=== PATIENT | female | born 1990 | race Hispanic/Latino ===

== ENCOUNTER 2017-08-28 18:37 | Emergency (ER) | payer BC, OTHER ==
[2017-08-28 19:35] LABS: #Basophils 0.1 thou/uL (0.0-0.2); #Eosinphils 0.6 thou/uL (0.0-0.7); #Lymphocytes 2.1 thou/uL (1.20-3.40); #Monocytes 0.6 thou/uL (0.11-0.59); #Neutrophils 5.1 thou/uL (1.40-6.50); %Basophils 1.1 % (0.0-1.0); %Lymphocytes 24.5 % (21.0-51.0); %Monocytes 7.1 % (0.0-10.0); %Neutrophils 60.3 % (42.0-75.0); Hemoglobin 12.8 g/dL (12.0-16.0); Mean Corpuscular HGB CONC 33.6 g/dL (32.0-36.0); Mean Corpuscular Hemoglobin 30.4 pg (27.0-31.0); Mean Corpuscular Volume 90.6 fl (81.0-99.0); Mean Platelet Volume 8.1 fL (7.4-10.4); Platelet Count 197 thou/uL (130-400); RBC Distribution Width 11.5 % (11.5-14.5); White Blood Cell (WBC) Count 8.4 thou/uL (4.8-10.8)
[2017-08-28 19:41] LABS: Bilirubin Negative (Negative); Blood, Urine Negative (Negative); Clarity Clear (Clear); Glucose, Urine (Dipstick) Negative (Negative); Leukocyte Negative (Negative); Nitrite Negative (Negative); Protein, Urine (Dipstick) Negative (Neg-Trace); Specific Gravity, Urine 1.015 (1.005-1.030); Urobilinogen 0.2 mg/dL (0.2-1.0); pH, Urine 7.5 (5.0-9.0)
--- NOTE | 2017-08-28 20:53 | ULT ---
PELVIC ULTRASOUND 08/28/17 HISTORY: Pelvic pain. Evaluate for ectopic . Patient is approximately 5 weeks . Cramping. COMPARISON: None. TECHNIQUE: Endovaginal imaging of the pelvis is performed. Ovaries are interrogated with cohen scale, color flow, doppler imaging with spectral waveform analysis. FINDINGS: The uterus is identified. There are no myometrial masses. The uterus measures 3.3 x 8.1 x 5.4 cm. Wit hin the endometrium, there is anechoic flow, which may represent a gestational sac. No evidence of a yolk sac or pole. Diameter of this anechoic focus is 0.55 cm, corresponding to an expected gestational age of 5 weeks, 2 days. There is no free fluid. Hypoechoic focus in the right ovary measuring 0.8 x 0.7 x 0.9 cm may represent a small cyst. Overall, the right ovary measures 3.2 x 2.1 x 1.4 cm and has a normal echotexture. Left ovary has a normal ec hotexture measuring 0.9 x 2.6 x 1.6 cm. OVARIAN DOPPLER: Vascular flow to the left and right ovary. IMPRESSION: Anechoic focus in the endometrium which may represent a gestational sac or pseudogestational sac. Dif ferential considerations include early intrauterine versus a sonographically occult ectopic . Followup ultrasound and serial beta HCGs are recommended. POS: [facility]
[2017-08-30 22:53] LABS: Chlamydia by PCR Not Detected (NotDetected); GC by PCR Not Detected (NotDetected)
== END 2017-08-28 22:17 | disposition home or self-care (01) ==
LOC: SCSER 18:37
DX: O99.89 Other specified diseases and conditions complicating pregnancy, childbirth and the puerperium (principal); R10.2 Pelvic and perineal pain; Z3A.01 Less than 8 weeks gestation of pregnancy
CPT/HCPCS: 76856; 81003; 84702; 85025; 87480; 87491; 87510; 87591; 87660

== ENCOUNTER 2017-09-16 12:54 | Day surgery (SDC) | payer BC, OTHER ==
[2017-09-15 14:18] VITALS: BMI 21.9
[2017-09-16] MEDS ORDERED: Fentanyl 100 MCG/2 ML VIAL ONE ×2 (13:56→16:53)
[2017-09-16] MEDS ORDERED: Midazolam HCl 2 mg/2 ml Vial ONE (13:56)
[2017-09-16] MEDS ORDERED: Lidocaine 1% w/Epinephrine 1:200K 30 ML VIAL ONE (14:03)
[2017-09-16] MEDS ORDERED: PHENYLEPHRINE-NS 100 MCG/ML 10 ML SYRINGE ONE (15:09)
[2017-09-16] MEDS ORDERED: Succinylcholine Chloride 20 MG/ML 10 ml SYRINGE FS ONE (15:09)
[2017-09-16] MEDS ORDERED: ePHEDrine/0.9% NaCl/PF SYRINGE 50 mg/10 ml ONE (15:09)
[2017-09-16] MEDS ORDERED: Dexamethasone 20 MG/5 ML VIAL ONE (15:09)
[2017-09-16] MEDS ORDERED: PROPOFOL 200 MG/20 ML VIAL ONE (15:09)
[2017-09-16] MEDS ORDERED: Ondansetron HCl/PF 4 MG/2 ML Vial ONE (15:09)
[2017-09-16] MEDS ORDERED: Lidocaine 1% PF 5 ML VIAL ONE (15:09)
[2017-09-16] MEDS ORDERED: HYDROmorphone 0.5 MG/0.5 ML SYRINGE ONE ×2 (17:18→17:29)
[2017-09-16] MEDS ORDERED: Ketorolac Tromethamine 30 MG/ML VIAL ONE (17:29)
[2017-09-16] MEDS ORDERED: Hydrocodone-Acetamin 15 ML UDCUP ONE (18:43)
--- NOTE | 2017-09-17 14:07 | OP ---
DATE OF PROCEDURE: 10/06/2017 PREOPERATIVE DIAGNOSIS: Left benign mixed tumor. POSTOPERATIVE DIAGNOSES: Left benign mixed tumor, large. PROCEDURE PERFORMED: Left superficial parotidectomy with facial nerve dissection using facial nerve monitoring. PROCEDURE IN DETAIL: After consent was obtained, the patient was identified, brought to the operatin g room and placed on the table in supine position. General endotracheal anesthesia was obtained. Th e patient was positioned for surgery. The facial nerve monitor was placed and electrodes were placed in the orbicularis criss and the orbicularis oculi respectively. The area was then prepped and drape d and the facial nerve monitor was documented to be functioning well. We then infiltrated the intend ed incision anterior to the ear and then in the upper cervical area and infiltrated the area with 1% lidocaine with 1:100,000 epinephrine. We then made an incision and carried it down to the level of t he SMAS and platysma muscle. We then elevated the flap at the level of the SMAS and parotid fascia a nd secured the facial flap anteriorly. We also extended posteriorly in the posterior neck portion. We were then able to dissect between the sternocleidomastoid, preauricular space and parotid fascia u ntil the posterior belly of the digastric was identified and the pointer cartilage. We did this in a broad front fashion. Dissection in between the pointer cartilage and the posterior belly of the dig astric insertion revealed the trunk of the facial nerve, which was dissected meticulously along the p es until the inferior and superior primary branches were identified. We then continued our dissectio n of each branch with special attention to the marginal mandibular branch until we had passed the mas s, which markedly deformed the course of the nerves. Once the nerves were found to be intact beyond the level of the mass, we were then able to resect the mass from the tail of parotid region. This wa s sent for histologic evaluation and found to be consistent with benign mixed tumor without evidence of malignancy. We then turned our attention to obtaining hemostasis with bipolar electrocautery and suture ligation. A drain was then placed and the flaps were reapproximated with the wound being clos ed deep levels with interrupted 5-0 Monocryl and the skin closed with 6-0 running Prolene. Sterile d ressing was applied. The patient was awakened, extubated and taken to recovery in a stable condition to discharge home. Prior to closure, we were able to test the facial nerve and we found all branche s to be functioning normally.
== END 2017-09-16 19:35 | disposition home or self-care (01) ==
LOC: SDC 12:54
PROVIDERS: ATTEND Specialist
PROC: 00BM0ZZ Excision of Facial Nerve, Open Approach (ICD-10-PCS; principal; 2017-09-16)
PROC: 0CB90ZZ Excision of Left Parotid Gland, Open Approach (ICD-10-PCS; principal; 2017-09-16)
DX: D11.0 Benign neoplasm of parotid gland (principal)
CPT/HCPCS: 36415; 85014; 88307; 96374; J1100; J1170; J1885; J2001; J2250; J2405; J2704; J3010

== ENCOUNTER 2017-09-27 00:16 | Emergency (ER) | payer BC, OTHER ==
[2017-09-27 01:17] LABS: #Eosinphils 0.2 thou/uL (0.0-0.7); #Lymphocytes 1.2 thou/uL (1.20-3.40); #Monocytes 0.8 thou/uL (0.11-0.59); #Neutrophils 11.8 thou/uL (1.40-6.50); %Basophils 0.1 % (0.0-1.0); %Eosinophils 1.6 % (0.0-10.0); %Lymphocytes 8.5 % (21.0-51.0); %Monocytes 5.4 % (0.0-10.0); %Neutrophils 84.5 % (42.0-75.0); Hemoglobin 14.7 g/dL (12.0-16.0); Mean Corpuscular HGB CONC 33.6 g/dL (32.0-36.0); Mean Corpuscular Hemoglobin 31.3 pg (27.0-31.0); Mean Corpuscular Volume 93.2 fl (81.0-99.0); Mean Platelet Volume 7.8 fL (7.4-10.4); Platelet Count 194 thou/uL (130-400); RBC Distribution Width 11.4 % (11.5-14.5)
[2017-09-27 01:39] LABS: ALT (SGPT) 8 U/L (8-55); AST (SGOT) 15 U/L (5-34); Albumin 4.5 g/dL (3.5-5.0); Alkaline Phosphatase 55 U/L (40-150); Anion Gap 15 mmol/L (10-20); BUN (Urea Nitrogen) 7 mg/dL (7.0-18.7); Bilirubin, Total 0.7 mg/dL (0.2-1.2); Calc. Creatinine Clearance 0 mL/min (70-130); Calcium 9.7 mg/dL (7.8-10.44); Carbon Dioxide 19 mmol/L (22-29); Chloride 103 mmol/L (98-107); Estimated GFR-MDRD 82; Globulin 3.9 g/dL (2.4-3.5); Glucose 114 mg/dL (70-105); Potassium 3.8 mmol/L (3.5-5.1); Protein, Total 8.4 g/dL (6.0-8.3); Sodium 133 mmol/L (136-145)
[2017-09-27] MEDS ORDERED: Ondansetron HCl/PF 4 MG/2 ML Vial ONE (04:42)
--- NOTE | 2017-09-27 08:41 | CT ---
PRELIMINARY REPORT/[facility]/EMERGENCY AFTER HOURS PROCEDURE: Addendum created by Teddy Tapia MD on 09/27/2017 5:43 AM Central Time ([place] & [place]) The above was read and discussed at approximately 5:42 AM [employer] on09/27/2017 with the attending physicDr. Barbara aaron Tiffany. Initial Report created on 09/27/2017 5:40 AM Central Time ([place] & [place]) EXAM: CT Neck With Intravenous Contrast EXAM DATE/TIME: 09/27/2017 5:05 AM CLINICAL HISTORY: 27 years old, female; Pain and signs and symptoms; Other: Swelling; Neck pain; Prior surgery; Surgery date: <1 month; Patient HX: 27 yo f presents to ed C/O l jaw swelling S/P surgery. 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 Pt states that on wednesday she noticed swelling to l jaw, saw dr on wednesday and prescribed bactrim. Pt states that on wednesday she noticed increased swell ing and firmness to l jaw as well as redness and warmth to that site. Reports n/v since wednesday. Den ies fever. TECHNIQUE: Axial computed tomography images of the neck with intravenous contrast. Coronal and sagittal reformatted images were created and reviewed. CONTRAST: 95 mL of ISOVUE 370 administered intravenously. COMPARISON: No relevant prior studies available. FINDINGS: Brain: -Visualized portions of the brain and orbits are normal. The fossa of Rosenmuller is normal. No hemorrhage. Nasopharynx: Unremarkable. Oropharynx: Unremarkable. No significant tonsillar enlargement. No peritonsillar abscess. Hypopharynx: -Piriform sinus is unremarkable. Larynx: -the epiglottis, preepiglottic fat and the aryepiglottic folds are normal. -The true cords ap pear normal. Trachea: Unremarkable. Retropharyngeal space: Unremarkable. Submandibular/parotid glands: Bilobed-shaped communicating abscess communicating abscess partially wi thin the left parotid gland posteriorly adjacent to the mastoid air cells extending inferiorly and laterally into the subcutaneous soft tissues. Maximal diameter of approximately 4 cm. - submental and submandibular regions are normal. Thyroid: -the thyroid gland, the thoracic inlet, the posterior triangles are normal. Bones/joints: -precervical space is normal. -No acute osseous abnormality. Soft tissues: Unremarkable. Vasculature: -the carotid spaces are normal. Lymph nodes: Unremarkable. No lymphadenopathy. Lung apices: Unremarkable as visualized. Other findings: -The mill work space is normal. -parapharyngeal space normal. -pharyngeal mucosal sp sherif is normal. IMPRESSION: Bilobed-shaped communicating abscess communicating abscess partially within the left parotid gland po steriorly adjacent to the mastoid air cells extending inferiorly and laterally into the subcutaneous soft tissues. Maximal diameter of approximately 4 cm. Thank you for allowing us to participate in the care of your patient. Dictated and Authenticated by: Teddy Tapia MD 09/27/2017 5:40 AM Central Time ([place] & [place]) FINAL REPORT CONTRAST ENHANCED CT IMAGES SOFT TISSUE NECK: Date: 09/27/17 HISTORY: Patient with previous history of parotid surgery. TECHNIQUE: Contrast enhanced CT images of soft tissue neck obtained. FINDINGS: Surgical change is seen in the left parotid gland superficial lobe posteriorly. There is a lobulated partially cystic circumferentially enhancing lesion in the posterior aspect of the left parotid gland extending medially posterior to the retromandibular vein. This area of hypodensity compatible with a n abscess runs posterior to the course of the left facial nerve. It extends inferiorly and laterally anterior to the left sternocleidomastoid muscle and lateral to the carotid canal. The left mastoid ai r cells do not appear to be opacified. IMPRESSION: Enhancing left parotid lesion with central areas of necrosis compatible with a left parotid abscess e xtending posteriorly and laterally to the left parotid gland. POS: [facility]
== END 2017-09-27 08:32 | disposition home or self-care (01) ==
LOC: ERS 00:16
DX: T81.4XXA Infection following a procedure, initial encounter (principal); K11.3 Abscess of salivary gland; Z79.899 Other long term (current) drug therapy; L03.221 Cellulitis of neck
CPT/HCPCS: 36415; 70491; 80053; 83605; 85025; 87040; 87070; 87076; 87077; 87186; 87205; 96361; 96374; 96375; 96376; J2270; J2405

== ENCOUNTER 2018-07-26 16:01 | Emergency (ER) | payer BC ==
[2018-07-26 16:45] LABS: #Eosinphils 0.4 thou/uL (0.0-0.7); #Lymphocytes 1.1 thou/uL (1.20-3.40); #Monocytes 0.7 thou/uL (0.11-0.59); %Basophils 0.3 % (0.0-1.0); %Lymphocytes 11.2 % (21.0-51.0); %Monocytes 6.5 % (0.0-10.0); Hemoglobin 11.9 g/dL (12.0-16.0); Mean Corpuscular Hemoglobin 30.6 pg (27.0-31.0); Mean Platelet Volume 7.4 fL (7.4-10.4); Platelet Count 217 thou/uL (130-400); RBC Distribution Width 12.3 % (11.5-14.5); Red Blood Cell (RBC) Count 3.89 mill/uL (4.20-5.40); White Blood Cell (WBC) Count 10.2 thou/uL (4.8-10.8)
[2018-07-26 17:09] LABS: ALT (SGPT) 14 U/L (8-55); AST (SGOT) 16 U/L (5-34); Albumin 3.4 g/dL (3.5-5.0); Alkaline Phosphatase 94 U/L (40-150); Anion Gap 15 mmol/L (10-20); BUN (Urea Nitrogen) 7 mg/dL (7.0-18.7); Bilirubin, Total 0.3 mg/dL (0.2-1.2); Calc. Creatinine Clearance 0 mL/min (70-130); Carbon Dioxide 20 mmol/L (22-29); Chloride 106 mmol/L (98-107); Estimated GFR-MDRD Greater than 90; Globulin 3.7 g/dL (2.4-3.5); Glucose 110 mg/dL (70-105); Potassium 3.5 mmol/L (3.5-5.1); Protein, Total 7.1 g/dL (6.0-8.3); Sodium 137 mmol/L (136-145)
== END 2018-07-26 19:02 | disposition home or self-care (01) ==
LOC: ERS 16:01
DX: O99.513 Diseases of the respiratory system complicating pregnancy, third trimester (principal); J06.9 Acute upper respiratory infection, unspecified; O99.343 Other mental disorders complicating pregnancy, third trimester; F41.9 Anxiety disorder, unspecified
CPT/HCPCS: 80053; 83880; 84484; 85025; 85379; 93005; 94640; 96360; J7620

== ENCOUNTER 2018-09-03 17:32 | Day surgery (SDC) | payer BC ==
[2018-09-03 17:59] VITALS: BMI 25.9
[2018-09-03 18:26] LABS: Amnisure Test No Membranes Rupture (No Rupture)
[2018-09-03 18:27] LABS: Amnisure Internal Control QC ACCEPTABLE (ACCEPTABLE)
--- NOTE | 2018-09-03 19:35 | ER ---
DATE OF SERVICE: 09/03/2018 OB ED NOTE TIME OF SERVICE: 1830 hours. PRESENTING COMPLAINT: Possible rupture of membranes at 36 weeks. HISTORY OF PRESENT ILLNESS: Ms. Gavin is a patient of mine at [facility]. She called this afternoon and said she thought her water may have broken and was told to come into the hospital for evaluation. She denies contractions. Reports an active fetus. GRAIN COMBINER HISTORY: SAB x1. x1 at term. Blood type O positive. Antibody negative, Pap negative, rubella immune, VDRL nonreactive. Hepatitis B, GC, and Chlamydia negative. Fetogram pending. PAST SURGICAL HISTORY: None. PAST SURGICAL HISTORY: None. ALLERGIES: DENIES. MEDICATIONS: vitamins. SOCIAL HISTORY: Denies tobacco, alcohol, or drug use. FAMILY HISTORY: Noncontributory. REVIEW OF SYSTEMS: Noncontributory. PHYSICAL EXAMINATION: GENERAL: female, in no acute distress. VITAL SIGNS: Temperature 97.9, respirations 18, blood pressure 118/72, and pulse of 75. HEENT: Within normal limits. LUNGS: Clear to auscultation bilaterally. HEART: Regular rate and rhythm. ABDOMEN: Soft, nontender without rebound or guarding. No palpable contractions. Vulva without lesions. Vagina without discharge. Cervix 1, 50, -1, cephalic. AmniSure collected. monitoring reveals heart rate in the 150s. Positive accels. No decelerations. Category I heart rate tracing. AmniSure is negative. IMPRESSION: No evidence of rupture of membranes or active labor at term with a reassuring heart rate tracing. PLAN: Discharge home. Keep scheduled followup at [facility]. Job ID: [id number]
== END 2018-09-03 19:10 | disposition home or self-care (01) ==
LOC: L&D/OP 17:32
PROVIDERS: ATTEND Obstetrics & Gynecology
DX: O99.89 Other specified diseases and conditions complicating pregnancy, childbirth and the puerperium (principal); N89.8 Other specified noninflammatory disorders of vagina; Z3A.36 36 weeks gestation of pregnancy
CPT/HCPCS: 84112; 99283

== ENCOUNTER 2018-09-21 06:43 | Inpatient (IN) | payer BC ==
[~2018-09-21 06:43] MED LIST: Bupivacaine 0.25% HCL 30 ML VIAL ONE; Bupivacaine PF 0.5% 30 ML VIAL ONE; ePHEDrine/0.9% NaCl/PF SYRINGE 50 mg/10 ml ONE
[2018-09-21] MEDS ORDERED: Ibuprofen 800 MG TAB PO PRN (07:23)
[2018-09-21] MEDS ORDERED: Butorphanol Tartrate 1 MG/ML VIAL SLOW IVP PRN (07:23)
[2018-09-21] MEDS ORDERED: Promethazine HCl 25 MG/ML VIAL IM PRN ×3 (07:23→12:41)
[2018-09-21] MEDS ORDERED: Acetaminophen 500 MG TAB PO PRN (07:23)
[2018-09-21] MEDS ORDERED: Ondansetron PF 4 MG/2 ML Vial IVP PRN ×3 (07:23→12:41)
[2018-09-21] MEDS ORDERED: Zolpidem Tartrate 5 MG TAB PO PRN ×2 (07:23→12:41)
[2018-09-21] MEDS ORDERED: Meperidine HCl/PF 25 MG/ML VIAL IM/IV PRN (07:23)
[2018-09-21] MEDS ORDERED: HYDROcodone/Acetaminophen 5/325 mg Tablet PO PRN ×4 (07:23→12:41)
[2018-09-21] MEDS ORDERED: Lidocaine 1% (PF) 30 ML VIAL SC PRN (07:23)
[2018-09-21 07:30] VITALS: BMI 26.2
[2018-09-21] MEDS ORDERED: NS w/ Oxytocin 10 units 500 ML IV SCH (07:30)
[2018-09-21] MEDS ORDERED: Fentanyl 4 mcg/Bup 0.1% Cadd 100 ML ONE (07:30)
[2018-09-21] MEDS ORDERED: Lactated Ringer's 1,000 ML IV SCH (07:30)
--- NOTE | 2018-09-21 07:32 | PDOC.LDHP ---
Labor and Delivery H&P Chief complaint: contractions HPI: 28 yo LAF presents c/o UCs since 3 AM. Denies SROM or bleeding. Current gestational age (weeks): 39 Due date: 09/26/18 Dating criteria: last menstrual period Grav: 4 Para: 1 OB History Details: PNC with Dr. Magdaleno w/o complications. h/o at term and SABx 2. Current complications: none Abnormal US findings: No Past Medical History: none Current medications: pre- vitamins Previous surgical history: other (parotid tumor) Allergies/Adverse Reactions: Allergies Allergy/AdvReac Type Severity Reaction Status Date / Time No Known Allergies Allergy Verified 09/15/17 14:18 Social history: none - Physical Exam Vital signs reviewed and normal: yes General: breathing through contractions Lungs: nonlabored breathing Abdomen: gravid Extremeties: trace edema FHT: category 1 Wagener contractions every: UCs q 2-3 mins. - Vaginal Exam cm dilated: 6 Effacement: 90% - OB Labs Blood type: O RH: positive Antibody Screen: negative HIV: negative RPR: negative HEPSAg: negative GBS: negative Rubella: immune - Assessment L&D Assessment: term patient in labor - Plan Plan: admit to L&D (Dr. Magdaleno notified), informed consent obtained, anesthesia consult for pain management
[2018-09-21 07:41] LABS: Hemoglobin 13.4 g/dL (12.0-16.0); Mean Corpuscular HGB CONC 33.8 g/dL (32.0-36.0); Mean Corpuscular Hemoglobin 30.2 pg (27.0-31.0); Mean Corpuscular Volume 89.2 fL (78.0-98.0); Mean Platelet Volume 8.2 fL (7.4-10.4); Platelet Count 228 thou/uL (130-400); RBC Distribution Width 13.4 % (11.5-14.5); Red Blood Cell (RBC) Count 4.45 mill/uL (4.20-5.40); White Blood Cell (WBC) Count 11.9 thou/uL (4.8-10.8)
[2018-09-21 08:18] LABS: Syphilis Antibody Nonreactive (Nonreactive); Syphilis Antibody Index 0.18 S/CO (<1.00 Non-Reactive)
[2018-09-21 08:19] LABS: Hep B Surf Ag Non-Reactive S/CO (NonReactive)
[2018-09-21] MEDS ORDERED: Naloxone HCl 0.4 mg/ml Vial IVP PRN ×2 (08:27)
[2018-09-21] MEDS ORDERED: ePHEDrine/0.9% NaCl/PF SYRINGE 50 mg/10 ml SLOW IVP PRN (08:27)
[2018-09-21] MEDS ORDERED: Eucerin (Mineral Oil/Petrolatum,White) 30 gm Jar TOP PRN (08:27)
[2018-09-21] MEDS ORDERED: Acetaminophen 325 MG TAB PO PRN (08:27)
[2018-09-21] MEDS ORDERED: Lactated Ringer's 500 ML IV PRN (08:27)
[2018-09-21] MEDS ORDERED: diphenhydrAMINE 50 MG/ML VIAL IVP PRN (08:27)
[2018-09-21] MEDS ORDERED: Communication Order-Pharmacy FS SCH (08:30)
[2018-09-21] MEDS ORDERED: Fentanyl 4 mcg/Bupivacaine 0.1% Cassette 100 ML EPIDURAL SCH (08:30)
[2018-09-21] MEDS: Lactated Ringer's 1,000 ML IV SCH ×2 (08:50→16:40)
[2018-09-21] MEDS ORDERED: Fentanyl 100 MCG/2 ML VIAL ONE (08:56)
[2018-09-21] MEDS: NS / Oxytocin 40 units/1000ml 1,000 ML IV PRN ×2 (10:51→11:53)
--- NOTE | 2018-09-21 11:52 | PDOC.OPDEL ---
OB Operative/Delivery Note Delivery Dr/Surgeon: Rasta Pre-Delivery Diagnosis: active labor Procedure/Post Delivery Dx: spontaneous vaginal delivery Weeks gestation: 39 Anesthesia: epidural - Findings A Sex: male Weight: 0 oz - 1 min: 9 - 5 min: 9 - Additional Findings/Plan Placenta delivered: spontaneous Repaired Obstetrical Laceration: 1st degree (repair with 20 chromic) Estimated blood loss: 151 Post delivery plan: routine recovery
[2018-09-21] MEDS ORDERED: Bisacodyl 10 MG SUPP PR PRN (12:41)
[2018-09-21] MEDS ORDERED: Benzocaine/Menthol 20-0.5% 60 ML CAN TOP PRN (12:41)
[2018-09-21] MEDS ORDERED: Milk Of Magnesia 30 ML UDCUP PO PRN (12:41)
[2018-09-21] MEDS ORDERED: Lanolin Ointment 7 GM TUBE TOP PRN (12:41)
[2018-09-21] MEDS ORDERED: NS / Oxytocin 40 units/1000ml 1,000 ML IV SCH (12:41)
[2018-09-21] MEDS ORDERED: Adacel (T-DAP) 0.5 ML SYRINGE IM ONE (12:41)
[2018-09-21] MEDS ORDERED: diphenhydrAMINE 25 MG CAP PO PRN (12:41)
[2018-09-21] MEDS: Ibuprofen 800 MG TAB PO SCH ×2 (14:36→21:35)
[2018-09-21] MEDS: Ferrous Sulfate 325 MG TAB PO SCH (17:58)
[2018-09-21] MEDS: Docusate Calcium (SURFAK) 240 MG CAP PO SCH (21:35)
[2018-09-22] MEDS: Ibuprofen 800 MG TAB PO SCH ×2 (05:33→13:30)
[2018-09-22 07:53] VITALS: BP 105/52; TEMP 98.6
[2018-09-22] MEDS: Ferrous Sulfate 325 MG TAB PO SCH (08:16)
[2018-09-22] MEDS: Lactated Ringer's 1,000 ML IV SCH ×2 (08:16→08:20)
[2018-09-22] MEDS: Docusate Calcium (SURFAK) 240 MG CAP PO SCH (08:17)
[2018-09-22] MEDS ORDERED: Prenatal Vitamin 1 TAB PO SCH (09:00)
== END 2018-09-22 17:15 | disposition home or self-care (01) | DRG 807 ==
LOC: L&D/OP 06:43 → L&D 07:40 → 3SW 12:52
PROVIDERS: ADMIT Obstetrics & Gynecology; ATTEND Obstetrics & Gynecology
PROC: 10E0XZZ Delivery of Products of Conception, External Approach (ICD-10-PCS; principal; 2018-09-21)
PROC: 0HQ9XZZ Repair Perineum Skin, External Approach (ICD-10-PCS; 2018-09-21)
PROC: 10907ZC Drainage of Amniotic Fluid, Therapeutic from Products of Conception, Via Natural or Artificial Opening (ICD-10-PCS; 2018-09-21)
DX: O70.0 First degree perineal laceration during delivery (principal); Z37.0 Single live birth; Z3A.39 39 weeks gestation of pregnancy
CPT/HCPCS: 51702; 85027; 86780; 86850; 86900; 86901; 87340; 99285; J3010; S0020

== ENCOUNTER 2019-08-15 16:56 | Day surgery (SDC) | payer BC ==
[2019-08-15 17:32] VITALS: BP 111/59; TEMP 98.2
[2019-08-15 17:37] VITALS: BMI 22.1
[2019-08-15] MEDS ORDERED: hydrALAZINE 20 MG/ML VIAL SLOW IVP PRN (17:58)
[2019-08-15 18:39] LABS: Amnisure Internal Control QC ACCEPTABLE (ACCEPTABLE); Amnisure Test No Membranes Rupture (No Rupture)
--- NOTE | 2019-08-15 18:57 | ULT ---
Obstetric sonogram Limited HISTORY: Premature rupture of membranes. FINDINGS: Single intrauterine gestation in breech presentation. Cervix is closed and 4.0 cm. Heart mo tion at 132 bpm. Grade 0 placenta is anterior. Amniotic fluid index 11.8. Advanced age limits anatomic detail. IMPRESSION: Amniotic fluid within normal limits.
[2019-08-15 19:00] LABS: Bilirubin Negative (Negative); Blood, Urine Negative (Negative); Clarity Clear (Clear); Glucose, Urine (Dipstick) Normal (Negative); Leukocyte Negative Leu/uL (Negative); Nitrite Negative (Negative); Protein, Urine (Dipstick) Negative (Neg-Trace); RBC/HPF 0-3 HPF (0-3); Squamous Epithelial None Seen HPF (0-3); Urobilinogen Normal mg/dL (Less than 2); WBC/HPF 0-3 HPF (0-3)
--- NOTE | 2019-08-15 19:00 | PRG ---
DATE OF SERVICE: 08/15/2019 PRIMARY OB: Dr. Magdaleno. CHIEF COMPLAINT: Leakage of fluid. HISTORY OF PRESENT ILLNESS: The patient is a 29-year-old G5, P2 female with an intrauterine at 23 weeks and 2 days, who presents for some leakage of fluid that she reports began about 04:30. She reports that she was walking when she suddenly felt like a "gush of fluid" that dampened her underwear but was not so much that she needed to change her underclothes or to stain through her clothes. The patient has a history of incontinence with this when she coughs and sneezes. She denies any change in her discharge. Denies intercourse in the last couple of days. About three and four days ago, patient experienced GI bug that was going around and causing diarrhea and vomiting, but it has since resolved. The patient denies chest pain, shortness of breath. She denies headache, cough, or other illness. She denies any new rashes. She denies constipation. She denies hip problems, knee problems, muscle weakness. She does have some lower back pain down in her joints and she denies vaginal bleeding. She denies urinary urgency or frequency. PAST MEDICAL HISTORY: Negative. PAST SURGICAL HISTORY: She has had a D and C. ALLERGIES: NO KNOWN DRUG ALLERGIES. MEDICATIONS: vitamins. SOCIAL HISTORY: Denies drug, alcohol, or tobacco use. OB LABS: Unavailable at time of dictation. REVIEW OF SYSTEMS: Per HPI. PHYSICAL EXAMINATION: VITAL SIGNS: Blood pressure 111/59, heart rate of 85, respiratory rate 18, temperature 98.2. GENERAL: She appears to be in no acute distress. She is alert, oriented, cooperative, pleasant to interact with. HEAD: Normocephalic, atraumatic. LUNGS: Clear to auscultation bilaterally. HEART: Regular rate and rhythm. ABDOMEN: Gravid, soft, nontender. There is no suprapubic tenderness. There is no CVA tenderness. EXTREMITIES: Nontender, nonedematous. GENITALIA: Vulva was without masses, lesions, or erythema. Vagina is moist. On speculum exam, she does have a minimal amount of clearish fluid present in the posterior cul-de-sac. She has a mucousy white discharge present at the external os and she has a granular discharge minimal and small on the vaginal stout. VPIII was collected. AmniSure was collected. heart tracing shows the fetus with a baseline in the 140s with moderate long-term variability. UA is pending. VPIII is pending. AmniSure is pending. An ultrasound for KEN was also ordered. ASSESSMENT AND PLAN: The patient is a 29-year-old multiparous female with an intrauterine at 23 weeks, presenting for minimal leakage of fluid. There was no overt evidence on clinical exam or history suggesting that she has had a rupture of membranes. We shall see what lab results show and what the ultrasound shows once she has given us a urine sample and the ultrasound has confirmed fluid levels. AmniSure test has returned. The patient can be discharged home and will follow up by phone her urinalysis results and her VPIII results. The patient recently saw Dr. Magdaleno, is not scheduled to see him again until the 06 of September. At this point in time, anticipate routine followup is sufficient. Fetus is reassuring for gestational age. addendum 2100 amnisure test was negative ua neg for si/sx of uti vp3 neg x3 pt called and given results reassurance given precautions given Job ID: [id number] [facility]
[2019-08-15 19:02] LABS: Bacteria/HPF Rare-Few HPF (None Seen)
[2019-08-16] MEDS ORDERED: FLU VACC QS2019-20(6MOS UP)/PF 60 MCG/0.5 ML SYRINGE IM ONE (09:00)
== END 2019-08-15 18:54 | disposition home or self-care (01) ==
LOC: L&D/OP 16:56
PROVIDERS: ATTEND Obstetrics & Gynecology
DX: O99.89 Other specified diseases and conditions complicating pregnancy, childbirth and the puerperium (principal); N89.8 Other specified noninflammatory disorders of vagina; Z3A.23 23 weeks gestation of pregnancy
CPT/HCPCS: 76815; 81001; 84112; 87480; 87510; 87660; 99285

== ENCOUNTER 2019-12-11 06:50 | Inpatient (IN) | payer BC, OTHER ==
[2019-12-11 07:34] VITALS: BMI 27.4
[2019-12-11] MEDS ORDERED: Ondansetron PF 4 MG/2 ML Vial IVP PRN ×3 (07:43→17:27)
[2019-12-11] MEDS ORDERED: HYDROcodone/Acetaminophen 5/325 mg Tablet PO PRN ×4 (07:43→17:27)
[2019-12-11] MEDS ORDERED: Promethazine HCl 25 MG/ML VIAL IM PRN ×3 (07:43→17:27)
[2019-12-11] MEDS ORDERED: Methylergonovine 0.2 MG/ML VIAL IM PRN (07:43)
[2019-12-11] MEDS ORDERED: hydrALAZINE 20 MG/ML VIAL SLOW IVP PRN ×2 (07:43→17:27)
[2019-12-11] MEDS ORDERED: Diphenoxylate HCl/Atropine Tablet PO PRN ×2 (07:43)
[2019-12-11] MEDS ORDERED: Acetaminophen 500 MG TAB PO PRN (07:43)
[2019-12-11] MEDS ORDERED: NS / Oxytocin 40 units/1000ml 1,000 ML IV PRN (07:43)
[2019-12-11] MEDS ORDERED: Carboprost 250 MCG/ML AMP IM PRN (07:43)
[2019-12-11] MEDS ORDERED: Lidocaine 1% (PF) 30 ML VIAL SC PRN (07:43)
[2019-12-11] MEDS ORDERED: Butorphanol Tartrate 1 MG/ML VIAL SLOW IVP PRN (07:43)
[2019-12-11] MEDS ORDERED: Misoprostol 200 MCG TAB PR PRN (07:43)
[2019-12-11] MEDS ORDERED: Ibuprofen 800 MG TAB PO PRN (07:43)
[2019-12-11] MEDS ORDERED: Penicillin G Potassium 5 MILL.UNITS in Sodium Chloride 0.9% 100 ML IVPB SCH (07:45)
[2019-12-11] MEDS ORDERED: Penicillin G Potassium 5 MILL.UNITS VIAL ONE (08:00)
[2019-12-11 08:19] LABS: Hemoglobin 12.8 g/dL (12.0-16.0); Mean Corpuscular HGB CONC 34.1 g/dL (32.0-36.0); Mean Corpuscular Hemoglobin 31.8 pg (27.0-31.0); Mean Corpuscular Volume 93.3 fL (78.0-98.0); Mean Platelet Volume 8.9 fL (7.4-10.4); Platelet Count 177 thou/uL (130-400); RBC Distribution Width 13.5 % (11.5-14.5); Red Blood Cell (RBC) Count 4.03 mill/uL (4.20-5.40); White Blood Cell (WBC) Count 9.4 thou/uL (4.8-10.8)
[2019-12-11] MEDS ORDERED: NS w/ Oxytocin 10 units 500 ML IV SCH (08:30)
[2019-12-11] MEDS ORDERED: Fentanyl 4 mcg/Bup 0.1% Cadd 100 ML ONE (08:46)
[2019-12-11] MEDS: Lactated Ringer's 1,000 ML IV SCH ×2 (08:59→17:26)
[2019-12-11 09:33] LABS: Hep B Surf Ag Non-Reactive S/CO (NonReactive); Syphilis Antibody Nonreactive (Nonreactive); Syphilis Antibody Index 0.13 S/CO (<1.00 Non-Reactive)
[2019-12-11] MEDS ORDERED: Naloxone HCl 0.4 mg/ml Vial IVP PRN ×2 (09:38)
[2019-12-11] MEDS ORDERED: diphenhydrAMINE 50 MG/ML VIAL IVP PRN (09:38)
[2019-12-11] MEDS ORDERED: Lactated Ringer's 500 ML IV PRN (09:38)
[2019-12-11] MEDS ORDERED: EPHEDRINE 25 MG/5 ML SYRINGE SLOW IVP PRN (09:38)
[2019-12-11] MEDS ORDERED: Acetaminophen 325 MG TAB PO PRN (09:38)
[2019-12-11] MEDS ORDERED: Communication Order-Pharmacy FS PRN (09:45)
[2019-12-11] MEDS ORDERED: Fentanyl 4 mcg/Bupivacaine 0.1% Cassette 100 ML EPIDURAL SCH (09:45)
[2019-12-11] MEDS: Penicillin G 2.5 MILL.units 2.5 MILL.UNITS in Premix Bag 1 BAG IVPB SCH ×2 (11:55→17:25)
[2019-12-11] MEDS ORDERED: Lidocaine 1% (PF) 30 ML VIAL ONE (13:19)
[2019-12-11] MEDS ORDERED: NS / Oxytocin 40 units/1000ml 1,000 ML ONE (13:19)
--- NOTE | 2019-12-11 14:24 | OP ---
DATE OF PROCEDURE: 12/11/2019 TIME OF SERVICE: 1336 hours. PREOPERATIVE DIAGNOSES: 40+ weeks' gestation, spontaneous onset of labor. POSTOPERATIVE DIAGNOSES: 40+ weeks' gestation, spontaneous onset of labor. PROCEDURE PERFORMED: Spontaneous vaginal delivery, KHUSHBU position with first-degree midline laceration repaired with 2-0 chromic. ANESTHESIA: Epidural. QBL: Pending. OPERATIVE FINDINGS: 1. Vigorous male . Apgars and weight are pending. 2. First-degree midline laceration. 3. Placenta delivered intact. 4. Repaired with 2-0 chromic. DISPOSITION: Routine recovery. DESCRIPTION OF PROCEDURE: The patient presented this morning in active labor. She was group B Strep positive and received two doses of penicillin for group B Strep prophylaxis. She progressed to complete-complete. Amniotomy was performed at that time with clear fluid noted. Over the next 10 minutes, the patient pushed and delivered spontaneously, KHUSHBU without nuchal cord. The infant was placed on maternal abdomen. Cord clamped and cut in delayed manner. Usual cord blood sample obtained. Placenta was delivered spontaneously. First-degree midline laceration noted and repaired using 2-0 chromic. The patient tolerated the procedure well and was entered into routine care. Job ID: [id number]
[2019-12-11] MEDS ORDERED: Zolpidem Tartrate 5 MG TAB PO PRN (17:27)
[2019-12-11] MEDS ORDERED: Lanolin Ointment 7 GM TUBE TOP PRN (17:27)
[2019-12-11] MEDS ORDERED: diphenhydrAMINE 25 MG CAP PO PRN (17:27)
[2019-12-11] MEDS ORDERED: Benzocaine-Menthol 82.5 ML CAN TOP PRN (17:27)
[2019-12-11] MEDS ORDERED: Bisacodyl 10 MG SUPP PR PRN (17:27)
[2019-12-11] MEDS ORDERED: NS / Oxytocin 40 units/1000ml 1,000 ML IV SCH (17:27)
[2019-12-11] MEDS ORDERED: Preparation H Ointment 28 GM TUBE PR PRN (17:27)
[2019-12-11] MEDS ORDERED: Milk Of Magnesia 30 ML UDCUP PO PRN (17:27)
[2019-12-11] MEDS: Ibuprofen 800 MG TAB PO SCH (22:29)
[2019-12-11] MEDS: Docusate Calcium (SURFAK) 240 MG CAP PO SCH (22:29)
[2019-12-12] MEDS: Ibuprofen 800 MG TAB PO SCH ×3 (04:49→15:18)
[2019-12-12] MEDS ORDERED: Ferrous Sulfate 325 MG TAB PO SCH (08:00)
[2019-12-12] MEDS ORDERED: Adacel (T-DAP) 0.5 ML SYRINGE IM ONE (09:00)
[2019-12-12] MEDS ORDERED: Prenatal Vitamin 1 TAB PO SCH (09:00)
[2019-12-12] MEDS: Docusate Calcium (SURFAK) 240 MG CAP PO SCH (09:29)
--- NOTE | 2019-12-12 10:07 | PDOC.PP ---
Post Progress Note Post Day #: 1 Subjective: Patient doing well this am. Minimal lochia < period. Baby is latching well. Pain well controlled. Patient has been up and ambulatory to restroom and urinating well. No CP, headache, shortness of breath or leg swelling. PO intake tolerated: yes Flatus: yes Ambulation: yes Vital Signs (12 hours) Temp Pulse Resp BP Pulse Ox 12/12/19 09:30 98 12/12/19 07:49 98.9 F 88 20 109/59 L 98 12/12/19 05:28 98.2 F 95 14 105/58 L 97 12/12/19 01:05 98.8 F 89 14 110/57 L 97 Weight Weight 165 lb - Physical Examination General: NAD Respiratory: non-labored breathing Abdominal: lochia, no distention, appropriately TTP Fundus firm & at: 2 cm below umbilicus Extremities: negative homans (B) Skin: no rash Neurological: no gross focal deficits Psychiatric: A&Ox3, normal affect Result Diagrams: 12/11/19 08:03 Additional Labs: Post Labs Blood Type O POSITIVE 12/11/19 08:03 Hep Bs Antigen Non-Reactive S/CO (NonReactive) 12/11/19 08:38 (1) Vaginal delivery Code(s): O80 - ENCOUNTER FOR FULL-TERM UNCOMPLICATED DELIVERY Status: Acute - Assessment/Plan Pt doing well PPD1. VSS, afebrile. H&H stable. PT breast feeding with good latch. Plan to discharge later this afternoon with office follow up in 6 weeks.
[2019-12-12 11:18] VITALS: BP 117/57; TEMP 98.5
== END 2019-12-12 17:05 | disposition home or self-care (01) | DRG 807 ==
LOC: L&D/OP 06:50 → L&D 07:50 → 3SW 19:19
PROVIDERS: ADMIT Obstetrics & Gynecology; ATTEND Obstetrics & Gynecology
PROC: 10E0XZZ Delivery of Products of Conception, External Approach (ICD-10-PCS; principal; 2019-12-11)
PROC: 0HQ9XZZ Repair Perineum Skin, External Approach (ICD-10-PCS; 2019-12-11)
PROC: 10907ZC Drainage of Amniotic Fluid, Therapeutic from Products of Conception, Via Natural or Artificial Opening (ICD-10-PCS; 2019-12-11)
DX: O48.0 Post-term pregnancy (principal); Z37.0 Single live birth; O70.0 First degree perineal laceration during delivery; Z3A.40 40 weeks gestation of pregnancy
CPT/HCPCS: 36415; 51702; 85027; 86780; 86850; 86900; 86901; 87340; 99285; J2001; J2540; J2590; J3490

== ENCOUNTER 2019-12-15 11:30 | Day surgery (SDC) | payer BC, OTHER ==
[2019-12-15] MEDS ORDERED: Metoclopramide HCl 10 MG/2 ML VIAL ONE (12:20)
[2019-12-15 12:57] LABS: #Eosinphils 0.3 thou/uL (0.0-0.7); #Lymphocytes 1.7 thou/uL (1.20-3.40); #Monocytes 0.3 thou/uL (0.11-0.59); #Neutrophils 3.9 thou/uL (1.40-6.50); %Basophils 0.4 % (0.0-1.0); %Eosinophils 4.7 % (0.0-10.0); %Lymphocytes 27.5 % (21.0-51.0); %Monocytes 4.6 % (0.0-10.0); %Neutrophils 62.8 % (42.0-75.0); Mean Corpuscular HGB CONC 32.9 g/dL (32.0-36.0); Mean Corpuscular Hemoglobin 30.9 pg (27.0-31.0); Mean Corpuscular Volume 93.9 fL (78.0-98.0); Mean Platelet Volume 7.8 fL (7.4-10.4); Platelet Count 213 thou/uL (130-400); RBC Distribution Width 13.1 % (11.5-14.5); Red Blood Cell (RBC) Count 4.19 mill/uL (4.20-5.40); White Blood Cell (WBC) Count 6.2 thou/uL (4.8-10.8)
[2019-12-15 13:22] LABS: ALT (SGPT) 21 U/L (8-55); AST (SGOT) 22 U/L (5-34); Albumin 3.8 g/dL (3.5-5.0); Alkaline Phosphatase 108 U/L (40-110); Anion Gap 13 mmol/L (10-20); BUN (Urea Nitrogen) 13 mg/dL (7.0-18.7); Bilirubin, Total 0.3 mg/dL (0.2-1.2); Calc. Creatinine Clearance 0 mL/min (70-130); Calcium 9.3 mg/dL (7.8-10.44); Carbon Dioxide 24 mmol/L (22-29); Chloride 105 mmol/L (98-107); Estimated GFR-MDRD Greater than 90; Globulin 3.6 g/dL (2.4-3.5); Glucose 76 mg/dL (70-105); Potassium 3.9 mmol/L (3.5-5.1); Protein, Total 7.4 g/dL (6.0-8.3); Sodium 138 mmol/L (136-145)
[2019-12-15 13:47] LABS: Creatinine, Urine Less than 20.00 mg/dL (47-110); Protein, Urine Random Quant Less than 10 mg/dL (1-14)
--- NOTE | 2019-12-15 13:53 | CT ---
CT BRAIN NONCONTRAST: DATE: 12/15/2019 HISTORY: 29-year-old female with headache FINDINGS: There is no evidence of acute intra-axial or extra-axial hemorrhage. There is no midline shift or any other mass effect. There is no extra-axial fluid collection. There is no evidence of obstructive hydrocephalus. Calvarium is intact. IMPRESSION: No acute intracranial findings.
[2019-12-15 14:53] LABS: Bacteria/HPF None Seen HPF (None Seen); Bilirubin Negative (Negative); Blood, Urine Trace (Negative); Clarity Clear (Clear); Glucose, Urine (Dipstick) Normal (Negative); Leukocyte Negative Leu/uL (Negative); Nitrite Negative (Negative); Protein, Urine (Dipstick) Negative (Neg-Trace); RBC/HPF 0-3 HPF (0-3); Squamous Epithelial 0-3 HPF (0-3); Urobilinogen Normal mg/dL (Less than 2); WBC/HPF 0-3 HPF (0-3)
[2019-12-15 14:55] LABS: Pregnancy Test - Urine (BHCG) Negative (Negative); Pregu Control Background? CLEAR/WHITE (CLR/WHITE); Pregu Control Bar Appear? YES (CONTROL BAR); Specific Gravity 1.006 (1.002-1.036)
[2019-12-15] MEDS ORDERED: Sodium Chloride 0.9% 10 ML ONE (15:13)
== END 2019-12-15 16:45 | disposition home or self-care (01) ==
LOC: ERS 11:30 → SDC 14:58
PROVIDERS: ATTEND Anesthesiology
PROC: 3E0S3GC Introduction of Other Therapeutic Substance into Epidural Space, Percutaneous Approach (ICD-10-PCS; principal; 2019-12-15)
DX: G97.1 Other reaction to spinal and lumbar puncture (principal)
CPT/HCPCS: 62272; 70450; 80053; 81003; 81015; 81025; 82570; 84156; 85025; 94760; 96365; 96366; J2765

== ENCOUNTER 2020-07-02 18:54 | Emergency (ER) | payer BC, SELFPAY ==
[2020-07-02 19:39] LABS: #Eosinphils 0.4 thou/uL (0.0-0.7); #Lymphocytes 1.1 thou/uL (1.20-3.40); #Monocytes 0.3 thou/uL (0.11-0.59); #Neutrophils 4.1 thou/uL (1.40-6.50); %Eosinophils 6.9 % (0.0-10.0); %Lymphocytes 18.3 % (21.0-51.0); %Monocytes 5.3 % (0.0-10.0); %Neutrophils 69.4 % (42.0-75.0); Hemoglobin 13.3 g/dL (12.0-16.0); Mean Corpuscular HGB CONC 34.1 g/dL (32.0-36.0); Mean Corpuscular Hemoglobin 30.3 pg (27.0-31.0); Mean Corpuscular Volume 88.9 fL (78.0-98.0); Mean Platelet Volume 8.2 fL (7.4-10.4); Platelet Count 190 thou/uL (130-400); RBC Distribution Width 12.1 % (11.5-14.5); Red Blood Cell (RBC) Count 4.41 mill/uL (4.20-5.40); White Blood Cell (WBC) Count 5.9 thou/uL (4.8-10.8)
[2020-07-02 19:59] LABS: ALT (SGPT) 11 U/L (8-55); AST (SGOT) 16 U/L (5-34); Albumin 4.5 g/dL (3.5-5.0); Alkaline Phosphatase 60 U/L (40-110); Anion Gap 14 mmol/L (10-20); BUN (Urea Nitrogen) 12 mg/dL (7.0-18.7); Bilirubin, Total 0.3 mg/dL (0.2-1.2); Calc. Creatinine Clearance 0 mL/min (70-130); Calcium 9.7 mg/dL (7.8-10.44); Carbon Dioxide 23 mmol/L (22-29); Chloride 107 mmol/L (98-107); Estimated GFR-MDRD 85; Globulin 3.2 g/dL (2.4-3.5); Glucose 108 mg/dL (70-105); Protein, Total 7.7 g/dL (6.0-8.3); Sodium 141 mmol/L (136-145)
[2020-07-02 20:09] LABS: Potassium 2.9 mmol/L (3.5-5.1)
[2020-07-02] MEDS ORDERED: Ketorolac Tromethamine 30 MG/ML VIAL ONE (20:18)
--- NOTE | 2020-07-02 20:34 | RAD ---
SINGLE VIEW OF THE CHEST: 07/02/20 COMPARISON: None. HISTORY: Chest pain for 24 hours. FINDINGS: Single view of the chest shows a normal sized cardiomediastinal silhouette. There is no evidence of c onsolidation, mass, or pleural effusion. The bones are unremarkable. IMPRESSION: No evidence of acute cardiopulmonary disease. POS: [facility]
[2020-07-03 03:11] LABS: SARS-CoV-2 MS2 Positive; SARS-CoV-2 N Gene Negative; SARS-CoV-2 S Gene Negative; SARS-CoV-2 by NAA Not Detected (NotDetected); SARS-CoV-2 orf1ab Negative
== END 2020-07-02 21:00 | disposition home or self-care (01) ==
LOC: ERS 18:54
DX: E87.6 Hypokalemia (principal); R07.89 Other chest pain; F41.9 Anxiety disorder, unspecified
CPT/HCPCS: 36415; 71045; 80053; 84484; 85025; 87635; 87804; 93005; 96374; J1885; U0003

== ENCOUNTER 2021-04-28 21:22 | Emergency (ER) | payer OTHER ==
[2021-04-28 22:49] LABS: #Eosinphils 0.5 thou/uL (0.0-0.7); #Lymphocytes 2.3 thou/uL (1.20-3.40); #Monocytes 0.7 thou/uL (0.11-0.59); #Neutrophils 6.4 thou/uL (1.40-6.50); %Basophils 0.3 % (0.0-1.0); %Eosinophils 4.9 % (0.0-10.0); %Lymphocytes 23.5 % (21.0-51.0); %Neutrophils 64.4 % (42.0-75.0); Hemoglobin 12.7 g/dL (12.0-16.0); Mean Corpuscular HGB CONC 33.5 g/dL (32.0-36.0); Mean Corpuscular Hemoglobin 31.5 pg (27.0-31.0); Mean Corpuscular Volume 93.9 fL (78.0-98.0); Mean Platelet Volume 7.8 fL (7.4-10.4); Platelet Count 216 thou/uL (130-400); RBC Distribution Width 13.1 % (11.5-14.5); Red Blood Cell (RBC) Count 4.04 mill/uL (4.20-5.40); White Blood Cell (WBC) Count 9.9 thou/uL (4.8-10.8)
[2021-04-28 22:58] LABS: ALT (SGPT) 9 U/L (8-55); AST (SGOT) 15 U/L (5-34); Albumin 3.6 g/dL (3.5-5.0); Alkaline Phosphatase 69 U/L (40-110); Anion Gap 13 mmol/L (10-20); BUN (Urea Nitrogen) 8 mg/dL (7.0-18.7); Bilirubin, Total 0.3 mg/dL (0.2-1.2); Calc. Creatinine Clearance 0 mL/min (70-130); Calcium 9.2 mg/dL (7.8-10.44); Carbon Dioxide 22 mmol/L (22-29); Chloride 106 mmol/L (98-107); Globulin 3.3 g/dL (2.4-3.5); Glucose 93 mg/dL (70-105); Potassium 4.2 mmol/L (3.5-5.1); Protein, Total 6.9 g/dL (6.0-8.3); Sodium 137 mmol/L (136-145)
== END 2021-04-29 01:12 | disposition short-term general hospital (02) ==
LOC: ERS 21:22
DX: O47.02 False labor before 37 completed weeks of gestation, second trimester (principal); Z3A.23 23 weeks gestation of pregnancy
CPT/HCPCS: 36415; 76856; 80053; 84702; 85025; 93976